=== PATIENT | male | born 1925 | race Two or more races ===

== ENCOUNTER 2017-07-06 21:21 | Emergency (ER) | payer MEDICARE, OTHER ==
[~2017-07-06] VITALS: Ht 172.7 cm; Wt 59.0 kg
[~2017-07-06 21:21] MED LIST: ALFU10TA PO; DOXE10CA2 PO; FERR-58 PO; FLUOROURACIL TOP; OMEP20CA10 PO; SIMV10TA6 PO
--- NOTE | 2017-07-06 22:25 | NUR ---
Patient discharged to home in stable conditon. Written and verbal after care instructions given. Patient, and his and son, verbalize understanding of instructions.
== END 2017-07-06 22:29 | disposition home or self-care (01) ==
LOC: ER 21:21
DX: S01.01XA Laceration without foreign body of scalp, initial encounter (principal); S11.91XA Laceration without foreign body of unspecified part of neck, initial encounter; E78.5 Hyperlipidemia, unspecified; K21.9 Gastro-esophageal reflux disease without esophagitis; W18.30XA Fall on same level, unspecified, initial encounter; Y92.89 Other specified places as the place of occurrence of the external cause; Y93.89 Activity, other specified; Y99.8 Other external cause status
CPT/HCPCS: 70450; A4217; A4663

== ENCOUNTER 2017-09-08 18:16 | Inpatient (IN) | payer OTHER ==
[~2017-09-08] VITALS: Ht 193 cm; Wt 66.7 kg
[~2017-09-08 18:16] MED LIST changes: -FERR-58 PO; +FERR325T24 PO
[2017-09-08] MEDS ORDERED: FAMOTIDINE 20 MG TABLET (18:27)
[2017-09-08] MEDS ORDERED: METOPROLOL TARTRATE 25 MG TAB (18:27)
[2017-09-08] MEDS ORDERED: ATORVASTATIN 20 MG TABLET (18:27)
[2017-09-08] MEDS ORDERED: OLAN5TAB30 PO (18:29)
[2017-09-08] MEDS ORDERED: CHOL100045 PO (18:29)
[2017-09-08] MEDS ORDERED: ASPI-1152 PO (18:29)
[2017-09-08] MEDS ORDERED: CYAN100071 PO (18:29)
[2017-09-08 19:05] LABS: BASOPHILS % (AUTO) 0.3 % (0.0-2.0); EOSINOPHILS % (AUTO) 0.1 % (0.0-7.0); HEMATOCRIT 43.6 % (36.7-47.1); HEMOGLOBIN 14.3 g/dL (12.5-16.3); LYMPHOCYTES # (AUTO) 0.6 K/uL (20.0-40.0); LYMPHOCYTES % (AUTO) 5.2 % (20.5-51.5); MEAN CORPUSCULAR HEMOGLOBIN 30.6 uug (23.8-33.4); MEAN CORPUSCULAR HGB CONC 33 g/dL (32.5-36.3); MEAN CORPUSCULAR VOLUME 93.4 fL (73.0-96.2); MONOCYTES # (AUTO) 0.3 K/uL (2.0-10.0); MONOCYTES % (AUTO) 2.5 % (0.0-11.0); NEUTROPHILS # (AUTO) 10.2 K/uL (1.8-8.9); NEUTROPHILS % (AUTO) 91.9 % (38.5-71.5); PLATELET COUNT (AUTO) 223 K/uL (152-348); RED BLOOD CELL COUNT(AUTO) 4.66 MIL/uL (4.06-5.63); WHITE BLOOD COUNT (AUTO) 11.1 K/uL (3.6-10.2)
[2017-09-08 19:12] LABS: ALANINE AMINOTRANSFERASE 19 U/L (16-63); ALKALINE PHOSPHATASE 148 U/L (50-136); ASPARTATE AMINOTRANSFERASE 17 U/L (15-37); BILIRUBIN,DIRECT 0.1 mg/dL (0.0-0.2); BILIRUBIN,TOTAL 0.5 mg/dL (0.2-1.0); CARBON DIOXIDE 27 mmol/L (21-32); CHLORIDE 104 mmol/L (98-107); GLUCOSE 130 mg/dL (74-106); POTASSIUM 3.8 mmol/L (3.5-5.1); TOTAL PROTEIN, SERUM 6.7 g/dL (6.4-8.2); UREA NITROGEN, BLOOD 17 mg/dL (7-18)
[2017-09-08 20:29] LABS: *BILIRUBIN,URIN NEGATIVE (NEGATIVE); *BLOOD, URINE NEGATIVE (NEGATIVE); *CLARITY,URINE CLEAR (CLEAR); *COLOR,URINE YELLOW (YELLOW); *KETONES,URINE NEGATIVE (NEGATIVE); *PROTEIN,URINE NEGATIVE (NEGATIVE); LEUKOCYTE ESTERASE ,URINE NEGATIVE (NEGATIVE); NITRITE, URINE NEGATIVE (NEGATIVE); UGLUCOSE NEGATIVE (NEGATIVE)
[2017-09-08 20:45] LABS: BACTERIA,URINE NONE SEEN /HPF (NONE SEEN); RBC,URINE NONE SEEN /HPF (0-3); SQUAMOUS EPITHELIAL CELL,UR FEW /HPF (NONE SEEN); WBC,URINE 0-3 /HPF (0-3)
[2017-09-08] MEDS ORDERED: OLANZAPINE 5 MG TABLET PO SCH (22:00)
[2017-09-08] MEDS ORDERED: MAGNESIUM HYDROXIDE 30 ML LIQUID UDC PO PRN (22:00)
[2017-09-08] MEDS ORDERED: ACETAMINOPHEN 325 MG TABLET PO PRN (22:00)
[2017-09-08] MEDS ORDERED: ONDANSETRON 4 MG/2 ML VIAL IV PRN (22:00)
[2017-09-08] MEDS ORDERED: TEMAZEPAM 7.5 MG CAPSULE PO PRN (22:15)
[2017-09-08 22:29] VITALS: BP 136/82
[2017-09-09 06:26] VITALS: BP 99/56
[2017-09-09 06:38] LABS: BASOPHILS % (AUTO) 0.1 % (0.0-2.0); HEMATOCRIT 40.8 % (36.7-47.1); HEMOGLOBIN 13.8 g/dL (12.5-16.3); LYMPHOCYTES # (AUTO) 1.5 K/uL (20.0-40.0); LYMPHOCYTES % (AUTO) 9.3 % (20.5-51.5); MEAN CORPUSCULAR HEMOGLOBIN 31.4 uug (23.8-33.4); MEAN CORPUSCULAR HGB CONC 34 g/dL (32.5-36.3); MEAN CORPUSCULAR VOLUME 92.8 fL (73.0-96.2); MONOCYTES # (AUTO) 0.7 K/uL (2.0-10.0); MONOCYTES % (AUTO) 4.2 % (0.0-11.0); NEUTROPHILS % (AUTO) 86.4 % (38.5-71.5); PLATELET COUNT (AUTO) 207 K/uL (152-348); RED BLOOD CELL COUNT(AUTO) 4.39 MIL/uL (4.06-5.63); WHITE BLOOD COUNT (AUTO) 16.3 K/uL (3.6-10.2)
[2017-09-09 06:52] LABS: THYROID STIMULATING HORMONE 1.293 mIU/mL (0.358-3.740)
[2017-09-09 07:48] LABS: ALANINE AMINOTRANSFERASE 19 U/L (16-63); ALKALINE PHOSPHATASE 141 U/L (50-136); ASPARTATE AMINOTRANSFERASE 13 U/L (15-37); BILIRUBIN,TOTAL 0.7 mg/dL (0.2-1.0); CARBON DIOXIDE 27 mmol/L (21-32); CHLORIDE 105 mmol/L (98-107); CHOLESTEROL 114 mg/dL (<200); CREATININE 1.1 mg/dL (0.6-1.3); GLUCOSE 127 mg/dL (74-106); HDL CHOLESTEROL 60 mg/dL (40-60); PHOSPHOROUS 3.7 mg/dL (2.5-4.9); POTASSIUM 4.1 mmol/L (3.5-5.1); TOTAL PROTEIN, SERUM 6.9 g/dL (6.4-8.2); TRIGLYCERIDES 37 MG/DL (30-150); UREA NITROGEN, BLOOD 19 mg/dL (7-18)
[2017-09-09] MEDS: METOPROLOL TARTRATE 25 MG TABLET PO SCH ×2 (09:00→20:05)
[2017-09-09] MEDS ORDERED: METOPROLOL TARTRATE 25 MG TABLET PO SCH (09:00)
[2017-09-09] MEDS: FAMOTIDINE 20 MG TABLET PO SCH (09:45)
[2017-09-09] MEDS: ASPIRIN EC 81 MG TABLET.DR PO SCH (09:45)
[2017-09-09] MEDS: CYANOCOBALAMIN 1,000 MCG TABLET PO SCH (09:45)
[2017-09-09] MEDS: CHOLECALCIFEROL 1,000 UNIT TABLET PO SCH (09:45)
[2017-09-09 11:30] VITALS: BP 101/63
[2017-09-09] MEDS: PIPERACILLIN/TAZOBACTAM/D5W 3.375 G in PREMIXED 1 EACH IV SCH ×2 (12:53→22:06)
[2017-09-09] MEDS: VANCOMYCIN IV 1 G in PREMIXED 0 EACH IV SCH (13:38)
[2017-09-09 15:48] VITALS: BP 116/69
[2017-09-09 20:00] VITALS: BP 122/66
[2017-09-09] MEDS: DOCUSATE SODIUM 250 MG CAPSULE PO SCH (20:04)
[2017-09-09] MEDS: ATORVASTATIN 20 MG TABLET PO SCH (20:04)
[2017-09-09] MEDS: MELATONIN 3 MG TABLET PO SCH (20:04)
[2017-09-09] MEDS: Z GUARD REMEDY PASTE 57 GM TUBE TOP SCH (20:12)
[2017-09-10] VITALS: BP 114/67
[2017-09-10 04:00] VITALS: BP 112/56
[2017-09-10] MEDS: PIPERACILLIN/TAZOBACTAM/D5W 3.375 G in PREMIXED 1 EACH IV SCH ×3 (05:09→21:11)
[2017-09-10] MEDS: FAMOTIDINE 20 MG TABLET PO SCH (08:12)
[2017-09-10] MEDS: CHOLECALCIFEROL 1,000 UNIT TABLET PO SCH (08:12)
[2017-09-10] MEDS: CYANOCOBALAMIN 1,000 MCG TABLET PO SCH (08:12)
[2017-09-10] MEDS: ASPIRIN EC 81 MG TABLET.DR PO SCH (08:12)
[2017-09-10] MEDS: METOPROLOL TARTRATE 25 MG TABLET PO SCH ×2 (08:13→20:21)
[2017-09-10] MEDS: Z GUARD REMEDY PASTE 57 GM TUBE TOP SCH ×2 (08:15→20:27)
[2017-09-10] MEDS: CYANOCOBALAMIN 1000 MCG/ML VIAL IM SCH (11:09)
[2017-09-10 11:15] LABS: BASOPHILS % (AUTO) 0.2 % (0.0-2.0); EOSINOPHILS # (AUTO) 0.1 K/uL (0.0-0.7); EOSINOPHILS % (AUTO) 0.6 % (0.0-7.0); HEMATOCRIT 37.8 % (36.7-47.1); HEMOGLOBIN 12.7 g/dL (12.5-16.3); LYMPHOCYTES # (AUTO) 1.1 K/uL (20.0-40.0); LYMPHOCYTES % (AUTO) 9.2 % (20.5-51.5); MEAN CORPUSCULAR HEMOGLOBIN 31.2 uug (23.8-33.4); MEAN CORPUSCULAR HGB CONC 34 g/dL (32.5-36.3); MEAN CORPUSCULAR VOLUME 93.1 fL (73.0-96.2); MONOCYTES # (AUTO) 0.9 K/uL (2.0-10.0); MONOCYTES % (AUTO) 7.2 % (0.0-11.0); NEUTROPHILS # (AUTO) 10.2 K/uL (1.8-8.9); NEUTROPHILS % (AUTO) 82.8 % (38.5-71.5); PLATELET COUNT (AUTO) 180 K/uL (152-348); RED BLOOD CELL COUNT(AUTO) 4.05 MIL/uL (4.06-5.63); WHITE BLOOD COUNT (AUTO) 12.3 K/uL (3.6-10.2)
[2017-09-10 11:23] LABS: CARBON DIOXIDE 26 mmol/L (21-32); CHLORIDE 102 mmol/L (98-107); CREATININE 0.9 mg/dL (0.6-1.3); GLUCOSE 94 mg/dL (74-106); POTASSIUM 4.2 mmol/L (3.5-5.1); UREA NITROGEN, BLOOD 14 mg/dL (7-18)
[2017-09-10 11:30] LABS: ALKALINE PHOSPHATASE 111 U/L (50-136); BILIRUBIN,TOTAL 0.7 mg/dL (0.2-1.0)
[2017-09-10] MEDS: VANCOMYCIN IV 1 G in PREMIXED 0 EACH IV SCH (11:31)
[2017-09-10 11:34] VITALS: BP 106/59
[2017-09-10 11:44] LABS: ALANINE AMINOTRANSFERASE 18 U/L (16-63); ASPARTATE AMINOTRANSFERASE 21 U/L (15-37); TOTAL PROTEIN, SERUM 6.3 g/dL (6.4-8.2)
[2017-09-10 15:26] VITALS: BP 107/66
[2017-09-10 20:00] VITALS: BP 99/58
[2017-09-10] MEDS: DOCUSATE SODIUM 250 MG CAPSULE PO SCH (20:20)
[2017-09-10] MEDS: ATORVASTATIN 20 MG TABLET PO SCH (20:20)
[2017-09-10] MEDS: MELATONIN 3 MG TABLET PO SCH (20:20)
[2017-09-11 05:01] VITALS: BP 99/58
[2017-09-11] MEDS: PIPERACILLIN/TAZOBACTAM/D5W 3.375 G in PREMIXED 1 EACH IV SCH ×3 (05:24→21:04)
[2017-09-11 07:07] LABS: BASOPHILS % (AUTO) 0.3 % (0.0-2.0); EOSINOPHILS # (AUTO) 0.1 K/uL (0.0-0.7); EOSINOPHILS % (AUTO) 1.5 % (0.0-7.0); HEMATOCRIT 36.7 % (36.7-47.1); HEMOGLOBIN 12.4 g/dL (12.5-16.3); LYMPHOCYTES % (AUTO) 12.7 % (20.5-51.5); MEAN CORPUSCULAR HEMOGLOBIN 31.2 uug (23.8-33.4); MEAN CORPUSCULAR HGB CONC 34 g/dL (32.5-36.3); MEAN CORPUSCULAR VOLUME 92.7 fL (73.0-96.2); MONOCYTES # (AUTO) 0.7 K/uL (2.0-10.0); MONOCYTES % (AUTO) 8.4 % (0.0-11.0); NEUTROPHILS # (AUTO) 6.3 K/uL (1.8-8.9); NEUTROPHILS % (AUTO) 77.1 % (38.5-71.5); PLATELET COUNT (AUTO) 194 K/uL (152-348); RED BLOOD CELL COUNT(AUTO) 3.95 MIL/uL (4.06-5.63); WHITE BLOOD COUNT (AUTO) 8.1 K/uL (3.6-10.2)
[2017-09-11 07:35] LABS: CARBON DIOXIDE 28 mmol/L (21-32); CHLORIDE 103 mmol/L (98-107); CREATININE 0.8 mg/dL (0.6-1.3); GLUCOSE 93 mg/dL (74-106); PHOSPHOROUS 3.5 mg/dL (2.5-4.9); POTASSIUM 3.7 mmol/L (3.5-5.1); UREA NITROGEN, BLOOD 13 mg/dL (7-18)
[2017-09-11] MEDS: CHOLECALCIFEROL 1,000 UNIT TABLET PO SCH (08:01)
[2017-09-11] MEDS: ASPIRIN EC 81 MG TABLET.DR PO SCH (08:02)
[2017-09-11] MEDS: FAMOTIDINE 20 MG TABLET PO SCH (08:02)
[2017-09-11] MEDS: CYANOCOBALAMIN 1000 MCG/ML VIAL IM SCH (08:02)
[2017-09-11] MEDS: Z GUARD REMEDY PASTE 57 GM TUBE TOP SCH ×2 (08:02→21:03)
[2017-09-11] MEDS: METOPROLOL TARTRATE 25 MG TABLET PO SCH ×2 (08:09→20:55)
[2017-09-11] MEDS ORDERED: VANCOMYCIN IV 1 G in PREMIXED 0 EACH IV SCH (08:30)
[2017-09-11 11:53] VITALS: BP 108/61
[2017-09-11 15:29] VITALS: BP 95/50
[2017-09-11 19:45] VITALS: BP 99/55
[2017-09-11] MEDS: DOCUSATE SODIUM 250 MG CAPSULE PO SCH (20:54)
[2017-09-11] MEDS: MELATONIN 3 MG TABLET PO SCH (20:56)
[2017-09-11] MEDS: ATORVASTATIN 20 MG TABLET PO SCH (21:03)
[2017-09-12 04:00] VITALS: BP 117/64
[2017-09-12] MEDS: PIPERACILLIN/TAZOBACTAM/D5W 3.375 G in PREMIXED 1 EACH IV SCH ×3 (05:19→23:02)
[2017-09-12 07:36] LABS: BASOPHILS % (AUTO) 0.5 % (0.0-2.0); EOSINOPHILS # (AUTO) 0.2 K/uL (0.0-0.7); EOSINOPHILS % (AUTO) 2.4 % (0.0-7.0); HEMATOCRIT 37.6 % (36.7-47.1); HEMOGLOBIN 12.5 g/dL (12.5-16.3); LYMPHOCYTES # (AUTO) 0.9 K/uL (20.0-40.0); LYMPHOCYTES % (AUTO) 10.8 % (20.5-51.5); MEAN CORPUSCULAR HEMOGLOBIN 30.9 uug (23.8-33.4); MEAN CORPUSCULAR HGB CONC 33 g/dL (32.5-36.3); MEAN CORPUSCULAR VOLUME 92.7 fL (73.0-96.2); MONOCYTES # (AUTO) 0.8 K/uL (2.0-10.0); MONOCYTES % (AUTO) 9.4 % (0.0-11.0); NEUTROPHILS # (AUTO) 6.4 K/uL (1.8-8.9); NEUTROPHILS % (AUTO) 76.9 % (38.5-71.5); PLATELET COUNT (AUTO) 200 K/uL (152-348); RED BLOOD CELL COUNT(AUTO) 4.05 MIL/uL (4.06-5.63); WHITE BLOOD COUNT (AUTO) 8.3 K/uL (3.6-10.2)
[2017-09-12 08:03] LABS: ALANINE AMINOTRANSFERASE 17 U/L (16-63); ALKALINE PHOSPHATASE 103 U/L (50-136); ASPARTATE AMINOTRANSFERASE 19 U/L (15-37); BILIRUBIN,TOTAL 0.4 mg/dL (0.2-1.0); CARBON DIOXIDE 26 mmol/L (21-32); CHLORIDE 105 mmol/L (98-107); CREATININE 0.8 mg/dL (0.6-1.3); GLUCOSE 103 mg/dL (74-106); MAGNESIUM 2.1 mg/dL (1.8-2.4); POTASSIUM 3.9 mmol/L (3.5-5.1); TOTAL PROTEIN, SERUM 6.5 g/dL (6.4-8.2); UREA NITROGEN, BLOOD 13 mg/dL (7-18)
[2017-09-12] MEDS: ASPIRIN EC 81 MG TABLET.DR PO SCH (08:11)
[2017-09-12] MEDS: CYANOCOBALAMIN 1000 MCG/ML VIAL IM SCH (08:11)
[2017-09-12] MEDS: CHOLECALCIFEROL 1,000 UNIT TABLET PO SCH (08:12)
[2017-09-12] MEDS: METOPROLOL TARTRATE 25 MG TABLET PO SCH ×2 (08:12→20:48)
[2017-09-12] MEDS: FAMOTIDINE 20 MG TABLET PO SCH (08:12)
[2017-09-12] MEDS: Z GUARD REMEDY PASTE 57 GM TUBE TOP SCH ×2 (08:12→21:00)
[2017-09-12 11:36] VITALS: BP 96/55
[2017-09-12 15:14] VITALS: BP 110/63
[2017-09-12 20:00] VITALS: BP 103/65
[2017-09-12] MEDS: MELATONIN 3 MG TABLET PO SCH (20:46)
[2017-09-12] MEDS: DOCUSATE SODIUM 250 MG CAPSULE PO SCH (20:46)
[2017-09-12] MEDS: ATORVASTATIN 20 MG TABLET PO SCH (20:46)
[2017-09-13 04:00] VITALS: BP 121/68
[2017-09-13] MEDS: PIPERACILLIN/TAZOBACTAM/D5W 3.375 G in PREMIXED 1 EACH IV SCH (05:24)
[2017-09-13 09:00] VITALS: BP 111/77
[2017-09-13] MEDS: Z GUARD REMEDY PASTE 57 GM TUBE TOP SCH (09:00)
[2017-09-13] MEDS: METOPROLOL TARTRATE 25 MG TABLET PO SCH (09:00)
[2017-09-13] MEDS: FAMOTIDINE 20 MG TABLET PO SCH (09:30)
[2017-09-13] MEDS: CHOLECALCIFEROL 1,000 UNIT TABLET PO SCH (09:30)
[2017-09-13] MEDS: ASPIRIN EC 81 MG TABLET.DR PO SCH (09:31)
[2017-09-13] MEDS: CYANOCOBALAMIN 1000 MCG/ML VIAL IM SCH (09:37)
[2017-09-13] MEDS ORDERED: DOCU250C14 PO (10:48)
[2017-09-13] MEDS ORDERED: ACID1TAB4 PO (10:48)
[2017-09-13] MEDS ORDERED: MELA3TAB PO (10:48)
[2017-09-13] MEDS ORDERED: METO25TA6 PO (10:48)
[2017-09-13] MEDS ORDERED: ATOR10TA PO (10:48)
== END 2017-09-13 12:10 | disposition home health service (06) | DRG 871 ==
LOC: ER 18:16 → TELE 21:42 → MED 09-10 21:30
PROVIDERS: ADMIT Internal Medicine; ATTEND Internal Medicine
DX: A41.9 Sepsis, unspecified organism (principal); J69.0 Pneumonitis due to inhalation of food and vomit; J96.01 Acute respiratory failure with hypoxia; I48.0 Paroxysmal atrial fibrillation; I50.33 Acute on chronic diastolic (congestive) heart failure; E44.0 Moderate protein-calorie malnutrition; I48.2 Chronic atrial fibrillation; D68.59 Other primary thrombophilia; E53.8 Deficiency of other specified B group vitamins; I45.2 Bifascicular block; Z68.1 Body mass index [BMI] 19.9 or less, adult; E78.5 Hyperlipidemia, unspecified; F01.50 Vascular dementia, unspecified severity, without behavioral disturbance, psychotic disturbance, mood disturbance, and anxiety; R55 Syncope and collapse; I11.0 Hypertensive heart disease with heart failure; H91.3 Deaf nonspeaking, not elsewhere classified; I45.10 Unspecified right bundle-branch block; N40.0 Benign prostatic hyperplasia without lower urinary tract symptoms; Z86.73 Personal history of transient ischemic attack (TIA), and cerebral infarction without residual deficits; Z91.81 History of falling; Z79.899 Other long term (current) drug therapy; R29.6 Repeated falls; K21.9 Gastro-esophageal reflux disease without esophagitis; Z74.09 Other reduced mobility; Z87.820 Personal history of traumatic brain injury
CPT/HCPCS: 36415; 70030-TC; 70450; 71045; 83735; 84100; 84443; 85025; 85730; 87086; 92610; 93005; 93307; 93880; 97110; 97116; 97530; A4663; C1758; J2543; J3370; J3420; J7040; J7050